=== PATIENT | male | born 1960 | race Caucasian/White ===

== ENCOUNTER → 2016-10-19 | Outpatient (CLI) | payer BC ==
[~2016-10-19] MED LIST: ASPI-611 PO; BIOT1TAB6 PO; CALC-494 PO; CHOL100017 PO; MULT-543 PO; NIAC500T74 PO; SIMV20TA89 PO; VITA100C20 PO; [UNRECOGNIZED DRUG - CODE] PO; [UNRECOGNIZED DRUG - CODE] PO
--- NOTE | 2016-10-19 17:15 | DI ---
EXAM: US ARTERIAL EXTREMITY LOWER BI LOCATION OF DICTATION: [place] HISTORY: ITS.REASON: R23.1 PALLOR, R60.9 EDEMA, UNSP COMPARISON: No prior studies available for comparison. Technique: Realtime grayscale sonographic images were obtained of the bilateral lower extremities with color flow and spectral analysis. Peak systolic velocities are measured in centimeters per second. FINDINGS: Right lower extremity findings: Common femoral: 134 cm/sec Triphasic Upper SFA: 116 cm/sec Triphasic Mid SFA: 96.7 cm/sec Triphasic Lower SFA: 68.8 cm/sec Triphasic Popliteal: 79.5 cm/sec Triphasic Proximal CONTROLLER COAL OR ORE: 77 cm/sec Triphasic Distal CONTROLLER COAL OR ORE: 85.1 cm/sec Triphasic Anterior tibial: 51.9 cm/sec Triphasic Dorsalis pedis: 53.2 cm/sec Triphasic Left lower extremity findings: Common femoral: 120 cm/sec Triphasic Upper SFA: 120 cm/sec Triphasic Mid SFA: 110 cm/sec Triphasic Lower SFA: 110 cm/sec Triphasic Popliteal: 65.5 cm/sec Triphasic Proximal CONTROLLER COAL OR ORE: 68.8 cm/sec Triphasic Distal CONTROLLER COAL OR ORE: 62.3 cm/sec Triphasic Anterior tibial: 68.8 cm/sec Triphasic Dorsalis pedis: 58 cm/sec Triphasic No visible stenosis identified. Multiphasic flow demonstrated throughout both lower legs. There is noted to be deep venous thrombosis within the right common femoral and popliteal veins. IMPRESSION: 1. Normal waveforms and velocities within the right and left lower extremity arteries without hemodynamically significant stenosis. 2. Nonocclusive deep venous thrombosis noted within the right common femoral and popliteal vein. The findings were discussed between the referring physician and the nuclear technologist on 10/19/2016 at 4:45 PM. .
== END ==
LOC: IMA 15:31
PROVIDERS: ATTEND Physician Assistant
DX: I82.411 Acute embolism and thrombosis of right femoral vein (principal); I82.431 Acute embolism and thrombosis of right popliteal vein; R23.1 Pallor; R60.9 Edema, unspecified